=== PATIENT | male | born 1995 | race Caucasian/White ===

== ENCOUNTER 2022-10-03 09:48 | Outpatient (CLI) | payer BC ==
[2022-10-03 12:48] LABS: Hemoglobin 14.4 g/dL (13.5-17.5); Mean Corpuscular HGB CONC 33.6 g/dL (32.0-36.0); Mean Corpuscular Hemoglobin 31.1 pg (27.0-33.0); Mean Corpuscular Volume 92.4 fl (81.2-95.1); Mean Platelet Volume 10.8 fl (7.4-10.4); Platelet Count 266 10x3/uL (150-450); RBC Distribution Width 12.4 % (11.5-14.5); Red Blood Cell (RBC) Count 4.63 10x6/uL (4.32-5.72); White Blood Cell (WBC) Count 5.6 10x3/uL (3.5-10.5)
== END 2022-10-03 09:49 | disposition home or self-care (01) ==
LOC: LABBT 09:48
PROVIDERS: ATTEND Orthopaedic Surgery Hand Surgery
DX: Z01.812 Encounter for preprocedural laboratory examination (principal); M67.431 Ganglion, right wrist
CPT/HCPCS: 85027

== ENCOUNTER 2022-10-05 07:15 | Day surgery (SDC) | payer BC ==
[2022-10-04 11:50] VITALS: BMI 27.1
[2022-10-05] MEDS ORDERED: Midazolam HCl 2 mg/2 ml Vial ONE (08:19)
[2022-10-05] MEDS ORDERED: Bupivacaine PF 0.5% 30 ML VIAL ONE (09:39)
[2022-10-05] MEDS ORDERED: Bacitracin Zinc Ointment 30 gm TUBE ONE (09:39)
[2022-10-05] MEDS ORDERED: Neomycin-Polymyxin 1 ML AMP ONE (09:39)
[2022-10-05] MEDS ORDERED: fentaNYL PF 100 MCG/2 ML SYRINGE ONE (09:45)
[2022-10-05] MEDS ORDERED: CEFAZOLIN 2 GM VIAL ONE (09:46)
[2022-10-05] MEDS ORDERED: Sodium Chloride 0.9% 100 ML ONE (09:46)
[2022-10-05] MEDS ORDERED: Lidocaine 1% PF 5 ML VIAL ONE (09:56)
[2022-10-05] MEDS ORDERED: Ondansetron PF 4 MG/2 ML Vial ONE (09:56)
[2022-10-05] MEDS ORDERED: PROPOFOL 200 MG/20 ML VIAL ONE (09:56)
[2022-10-05] MEDS ORDERED: Dexamethasone 20 MG/5 ML VIAL ONE (09:56)
[2022-10-05] MEDS ORDERED: ePHEDrine Sulfate 50 MG/10 ML VIAL ONE (09:56)
[2022-10-05] MEDS ORDERED: Ketorolac Tromethamine 30 MG/ML VIAL ONE ×2 (09:56→11:19)
== END 2022-10-05 13:23 | disposition home or self-care (01) ==
LOC: SDC 07:15
PROVIDERS: ATTEND Orthopaedic Surgery Hand Surgery
PROC: 0PBM0ZZ Excision of Right Carpal, Open Approach (ICD-10-PCS; principal; 2022-10-05)
PROC: 0RBN0ZZ Excision of Right Wrist Joint, Open Approach (ICD-10-PCS; principal; 2022-10-05)
DX: M67.431 Ganglion, right wrist (principal); M25.731 Osteophyte, right wrist
CPT/HCPCS: 88304; 88305; 88311; J1100; J1885; J2250; J2405; J2704; J3490; S0020